=== PATIENT | female | born 1990 | race Caucasian/White ===

== ENCOUNTER 2022-06-20 07:30 | Inpatient (IN) ==
[2022-06-20] MEDS ORDERED: LACTATED RINGER'S 1,000 ML IV PRN (08:10)
[2022-06-20] MEDS ORDERED: LIDOCAINE 1% LOCAL 20 ML VIAL INFIL PRN (08:10)
[2022-06-20] MEDS ORDERED: OXYTOCIN 30 UNITS/500 ML BAG IV PRN ×3 (08:10→17:58)
--- NOTE | 2022-06-20 08:15 | History & Physical Report ---
Date of Service June 20, 2022 Assessment & Plan (1) Elective induction of labor planned: Plan: 32 y/o here for IOL at 40+ weeks. GBS + treat during labor. RI. Rh pos. Occasional contractions, no loss of fluid or bleeding. +FM. Start pit as indicated. Will f/u platelet level and decide on epidural. Of note: bilobed placenta Last pap 2020 NIL. No STD hx Admission and Anticipated Discharge Date Admission Date: June 20, 2022 History of Present Illness Chief Complaint: IOL past dates Primary Care Provider: Kiarra Bernal MD 32 y/o here for IOL a 40+ weeks. GBS +. RI. Rh pos. Occasional contractions, no loss of fluid or bleeding. +FM. complicated by borderline low platelet counts. Of note: bilobed placenta Last pap 2020 NIL. No STD hx Allergies Allergy/AdvReac Type Severity Reaction Status Date / Time pet dander Allergy Unknown POSITIVE Uncoded 06/19/22 13:50 ALLERGY TEST TO MANY THINGS pollen Allergy Unknown POSITIVE Uncoded 06/19/22 13:50 ALLERGY TEST TO MANY THINGS Home Medications Medication Instructions Recorded Confirmed Type omega-3 fatty acids 1,000 mg 1,000 mg PO DAILY 05/12/20 06/20/22 History capsule (Fish Oil Concentrate) cetirizine 10 mg capsule (Zyrtec) 10 mg PO DAILY 07/17/20 06/20/22 History ferrous sulfate 325 mg (65 mg 325 mg PO Q OTHER DAY 08/10/20 06/20/22 History iron) tablet (iron) vit no.95-ferrous 1 tab PO DAILY 08/10/20 06/20/22 History fumarate 28 mg-folic acid 800 mcg tablet () potassium gluconate 595 mg (99 mg) 595 mg PO 3XWK 09/13/21 06/20/22 History tablet fluticasone propionate 50 1 spray intranasal DAILY 10/05/21 06/20/22 History mcg/actuation nasal spray,suspension urkecnbvvc-dzfusegvihllo-qvbqsojy 1 tab PO BID PRN pain #12 tabs 01/28/22 06/20/22 Rx 50 mg-325 mg-40 mg tablet Patient History Medical History (Updated 06/20/22 @ 08:35 by Monisha Rosa MD) Allergic conjunctivitis Allergic rhinitis Binge eating disorder Chronic urticaria Fertility testing History of chicken pox Hypokalemia Migraine with aura Secondary amenorrhea Thyroid nodule Surgical History History of wisdom tooth extraction 2016 Family History (Updated 06/20/22 @ 07:50 by Taya Hutchison, RN) Family/Other Colorectal cancer Greatgrandfathers Father Hypertension Other Colonic polyp Depression Kidney disease Denies family history of Ovarian cancer Prostate cancer Myocardial infarction Breast cancer Uterine cancer Social History (Updated 06/20/22 @ 07:52 by Taya Hutchison, RN) Smoking Status: Never smoker Second Hand Exposure: No; Hx Alcohol Use: No Hx Substance Use: No Preferred Language: Cymro Communication Ability: Effective Visual Impairment: Limited Hearing Ability: Normal Edge Sawyer Required: No Beliefs That Will Affect Care: None marital status: marital status details: Romero Peterson (38) [phone] Current Living Situation: Spouse Current Living Situation Comment: lives with spouse, cats-spouse changing litter current occupational status: employed current occupation: [employer] How many Children do You have: 0 Other Information That Helps Us Care for You: No Feels Safe at Home: Yes Safety Concerns: Feels Safe At This Time Dental Care, Regularly: Yes Physical Activity Frequency: Daily Physical Activity Frequency Comment: walking 5-6 miles daily Seatbelt Use: always Sunscreen Use: Yes Gender Identity: Female Assistive Devices: None Review of Systems no n/v/constip/SOB/CP/palps Physical Exam Constitutional: WD/WN, vitals as above Respiratory: normal respiratory effort, lungs clear to auscultation Cardiovascular: RRR, no murmur, no edema Extremities: no calf tenderness Psychiatric: A+Ox3, euthymic affect Genitourinary: OB Exam Abdomen: + vertex and + estimated weight (6-7 pounds) Manual OB Exam: + cervical dilation 4 cm, + cervical effacement 80% and + station -2 OB Exam Monitor Tracing: + external FHT monitor used, + external uterine monitor used, + category I and + normal FHT variability gravid abdomen Results & Data ([facility]) Vital Signs (Past 12 Hours) Vital Signs Temp Pulse Resp BP 06/20/22 07:43 37.2 C 73 20 110/64 Supervising Physician Co-Signing Physician Notes Resident Physician Supervision Note: I interviewed and examined the patient. Discussed with Dr. Rosa and agree with findings and plan as documented in the note. Any exceptions or clarifications are listed here: Platelet count is 99K on admission. will order coag studies per Dr. Kaplan's recommendations. Patient undecided about epidural at this time but if she should require a spinal for a section , the coag study results would still be necessary. Documented By: Cyndi Arizmendi MD, FACOG Resident Activity Tracking Resident Involvement: Resident Care Provided Care Provided: OB Delivery
[2022-06-20] MEDS ORDERED: PENICILLIN G POTASSIUM 6 MU in DEXTROSE 5% 250 ML IV STA (08:25)
[2022-06-20 08:57] LABS: Hematocrit (blood only) 33.9 % (34.1-44.9); Hemoglobin 11.8 g/dl (12.0-16.0); Mean Corpuscular Hemoglobin 32.8 pg (25.0-34.0); Mean Corpuscular Hgb Conc 34.8 g/dL (32.0-36.0); Mean Corpuscular Volume 94.2 fL (80.0-100.0); Mean Platelet Volume 11.6 fL (9.4-12.3); Platelet Count 99 K/uL (130-400); RDW Coefficient of Variation 12.7 % (11.5-14.5); RDW Standard Deviation 44.2 fL (36.4-46.3); White Blood Count 8.65 K/ul (4.8-10.8)
[2022-06-20] MEDS ORDERED: SODIUM CHLORIDE 0.9% 250 ML IV PRN (09:11)
[2022-06-20 10:11] LABS: INR 0.9 (0.9-1.1); Partial Thromboplastin Time 27.3 Seconds (21.0-31.0); Prothrombin Time 9.7 Seconds (9.0-12.0)
[2022-06-20] MEDS: PENICILLIN G POTASSIUM 3 MU in DEXTROSE 5% 100 ML IV PRN ×2 (12:27→16:37)
[2022-06-20] MEDS ORDERED: ePHEDrine sulfate 50 MG/ML AMP ONE (16:49)
[2022-06-20] MEDS ORDERED: SODIUM CHLORIDE 0.9% INJ 10 ML VIAL ONE (16:50)
[2022-06-20] MEDS ORDERED: LIDOCAINE 2%/EPINEPHRINE 1:200,000 20 ML SDV ONE (16:50)
[2022-06-20] MEDS ORDERED: fentaNYL citrate 100 MCG/2 ML VIAL ONE (16:50)
[2022-06-20] MEDS ORDERED: fentaNYL 2MCG/ML ROPIVACAINE 1.25MG/ML 100 ML BAG EPI ONE (16:50)
[2022-06-20] MEDS ORDERED: BUPIVACAINE 0.25% 30 ML VIAL ONE (16:50)
[2022-06-20] MEDS ORDERED: bisacodyL 10 MG SUPP PR PRN (17:58)
[2022-06-20] MEDS ORDERED: HYDROCORTISONE ACETATE 25 MG SUPP PR PRN (17:58)
[2022-06-20] MEDS ORDERED: BENZOCAINE 20% AER SPR 82.5 GM CAN EXT PRN (17:58)
[2022-06-20] MEDS ORDERED: ACETAMINOPHEN 325 MG TAB PO PRN (17:58)
[2022-06-20] MEDS ORDERED: DIPHTHERIA/TETANUS/PERTUSSIS 0.5mL SYR/VIAL (Age 7+yrs) IM ONE (17:58)
--- NOTE | 2022-06-20 20:09 | Delivery Summary ---
Vaginal Delivery Summary Date of Service June 20, 2022 Vaginal Delivery Summary Patient is a 32-year-old 1 P0 female EDC 06/16/2022 who presented for induction of labor because of postterm . Pitocin augmentation of her contractions was begun and membranes were ruptured for clear fluid. At this point she progressed quickly to full dilation with the urge to push. She pushed effectively over an intact perineum for delivery of a viable female infant. After the head was delivered, the rest the infant delivered easily and was placed on the mother's abdomen for further attention and drying. The was vigorous and crying upon delivery. After 1 minute, the cord was clamped and cut. Cord blood was obtained. Placenta was then expressed intact with a three- vessel cord. It did have a bilobed appearance and was sent to pathology for exam. bleeding was controlled with dilute Pitocin and fundal massage. Very superficial perineal laceration was not bleeding and therefore not repaired. Estimated blood loss was 200 cc. Mother and infant were doing well after delivery. This was an unmedicated . [facility] Vaginal Delivery Charge Delivery Type Details: [facility]
[2022-06-20] MEDS: DOCUSATE SODIUM 100 MG CAP PO SCH (21:18)
[2022-06-20] MEDS: IBUPROFEN 600 MG TAB PO PRN (21:18)
[2022-06-21 06:48] LABS: Hemoglobin 10.3 g/dl (12.0-16.0); Mean Corpuscular Hemoglobin 32.4 pg (25.0-34.0); Mean Corpuscular Hgb Conc 34.3 g/dL (32.0-36.0); Mean Corpuscular Volume 94.3 fL (80.0-100.0); Mean Platelet Volume 11.9 fL (9.4-12.3); Platelet Count 97 K/uL (130-400); RDW Coefficient of Variation 12.8 % (11.5-14.5); RDW Standard Deviation 44.1 fL (36.4-46.3); Red Blood Count 3.18 M/uL (3.93-5.22); White Blood Count 14.52 K/ul (4.8-10.8)
--- NOTE | 2022-06-21 07:10 | Obstetrical Progress Note ---
Date of Service <Monisha Rosa MD - Last Filed: 06/21/22 08:37> June 21, 2022 Assessment & Plan <Monisha Rosa MD - Last Filed: 06/21/22 08:37> (1) Elective induction of labor planned: 32 y/o here for IOL at 40+ weeks now PPD1. GBS + treated during labor. RI. Rh pos. Tolerating PO. Encourage ambulation. Satisfactory post progress. Of note: bilobed placenta - sent for path Plts: 97 Coags: normal Last pap 2020 NIL. No STD hx MS3, Shara Ovalleo contributed to the history and physical of this note. (2) care following vaginal delivery: <Cyndi Arizmendi MD, FACOG - Last Filed: 06/21/22 09:10> (1) Elective induction of labor planned: (2) care following vaginal delivery: Subjective <Monisha Rosa MD - Last Filed: 06/21/22 08:37> Ambulation: ambulating normally Voiding: no voiding problems Passing Gas:: Yes Diet Tolerance:: regular diet Lochia:: Small Feeding Type:: breast feeding Physical Exam <Monisha Rosa MD - Last Filed: 06/21/22 08:37> Constitutional WD/WN, vitals as above Respiratory normal respiratory effort, lungs clear to auscultation Cardiovascular RRR, no murmur, no edema Extremities: no calf tenderness Psychiatric A+Ox3, euthymic affect Genitourinary OB Exam Abdomen: + fundal height (1 cm below the level of the umbilicus) Fundus: + firm Results & Data ([facility]) <Monisha Rosa MD - Last Filed: 06/21/22 08:37> Vital Signs (Past 12 Hours) Vital Signs Temp Pulse Pulse Resp BP BP BP 06/21/22 03:09 36.8 C 65 16 124/78 06/20/22 22:57 37.2 C 69 18 115/75 06/20/22 20:00 20 06/20/22 19:13 36.6 C 06/20/22 20:01 81 06/20/22 20:01 118/57 L 06/20/22 19:47 73 06/20/22 19:47 117/55 L 06/20/22 19:31 74 06/20/22 19:31 127/65 06/20/22 19:16 67 06/20/22 19:16 134/74 Pulse Ox O2 Del Method 06/21/22 03:09 98 Room Air 06/20/22 22:57 97 Room Air 06/20/22 20:00 06/20/22 19:13 06/20/22 20:01 06/20/22 20:01 06/20/22 19:47 06/20/22 19:47 06/20/22 19:31 06/20/22 19:31 06/20/22 19:16 06/20/22 19:16 <Cyndi Arizmendi MD, FACOG - Last Filed: 06/21/22 09:10> Co-Signing Physician Notes Resident Physician Supervision Note: I interviewed and examined the patient. Discussed with Dr. Rosa and agree with findings and plan as documented in the note. Any exceptions or clarifications are listed here: Platelet count stable today - will recheck at 6 week visit. Documented By: Cyndi Arizmendi MD, FACOG Resident Activity Tracking <Monisha Rosa MD - Last Filed: 06/21/22 08:37> Resident Involvement: Resident Care Provided Care Provided: OB Delivery
[2022-06-21] MEDS: PRENATAL VITAMIN 1 TAB PO SCH (08:15)
[2022-06-21] MEDS: DOCUSATE SODIUM 100 MG CAP PO SCH ×2 (08:15→21:14)
[2022-06-21] MEDS ORDERED: bisacodyL 5 MG TABEC PO SCH (20:00)
[2022-06-21] MEDS: IBUPROFEN 600 MG TAB PO PRN (21:14)
[2022-06-22 06:23] LABS: Hematocrit (blood only) 30.2 % (34.1-44.9); Hemoglobin 10.4 g/dl (12.0-16.0)
--- NOTE | 2022-06-22 06:58 | Obstetrical Progress Note ---
Date of Service <Monisha Rosa MD - Last Filed: 06/22/22 06:58> June 22, 2022 Assessment & Plan <Monisha Rosa MD - Last Filed: 06/22/22 06:58> (1) Elective induction of labor planned: 32 y/o here for IOL at 40+ weeks now PPD2. GBS + treated during labor. RI. Rh pos. Tolerating PO. Encourage ambulation. Satisfactory post progress. Of note: bilobed placenta - sent for path Plts: 97 Coags: normal Last pap 2020 NIL. No STD hx (2) care following vaginal delivery: <Ana M Tariq MD, FACOG - Last Filed: 06/22/22 07:32> (1) Elective induction of labor planned: (2) care following vaginal delivery: Subjective <Monisha Rosa MD - Last Filed: 06/22/22 06:58> Ambulation: ambulating normally Voiding: no voiding problems Passing Gas:: Yes Diet Tolerance:: regular diet Lochia:: Small Feeding Type:: breast feeding Physical Exam <Monisha Rosa MD - Last Filed: 06/22/22 06:58> Constitutional WD/WN, vitals as above Respiratory no increased work of breathing Cardiovascular Extremities: no calf tenderness clinically well perfused Psychiatric A+Ox3, euthymic affect Genitourinary OB Exam Abdomen: + fundal height (1 cm below the level of the umbilicus) Fundus: + firm Results & Data ([facility]) <Monisha Rosa MD - Last Filed: 06/22/22 06:58> Vital Signs (Past 12 Hours) Vital Signs Temp Pulse Pulse Resp BP BP Pulse Ox 06/21/22 23:55 37.0 C 61 18 105/71 99 06/21/22 19:30 36.7 C 68 18 115/67 98 O2 Del Method 06/21/22 23:55 Room Air 06/21/22 19:30 <Ana M Tariq MD, FACOG - Last Filed: 06/22/22 07:32> Co-Signing Physician Notes Resident Physician Supervision Note: I interviewed and examined the patient. Discussed with Dr. Rosa and agree with findings and plan as documented in the note. Any exceptions or clarifications are listed here: Doing well. Plan d/c. Instructions given. f/u 6 weeks/prn. Documented By: Ana M Tariq MD, FACOG Resident Activity Tracking <Monisha Rosa MD - Last Filed: 06/22/22 06:58> Resident Involvement: Resident Care Provided Care Provided: OB Delivery
[2022-06-22] MEDS: PRENATAL VITAMIN 1 TAB PO SCH (08:25)
[2022-06-22] MEDS: DOCUSATE SODIUM 100 MG CAP PO SCH (08:25)
== END 2022-06-22 10:45 | disposition home or self-care (01) | DRG 807 ==
LOC: 4S1 07:30 → 4E2 20:29
DX: Z91.09 Other allergy status, other than to drugs and biological substances; Z3A.40 40 weeks gestation of pregnancy; O48.0 Post-term pregnancy; O43.893 Other placental disorders, third trimester; Z37.0 Single live birth; O99.824 Streptococcus B carrier state complicating childbirth; Z79.899 Other long term (current) drug therapy